=== PATIENT | male | born 1995 | race Two or more races ===

== ENCOUNTER 2024-04-02 06:15 | Emergency (ER) | payer BC, MEDICAID, SELFPAY ==
[2024-04-02 06:15] VITALS: BMI 23.4
[2024-04-02 06:20] VITALS: BP 134/68; PULSE 90; RESP 18; TEMP 36.8; O2SAT 98
--- NOTE | 2024-04-02 06:33 | XR_ITS ---
Examination: CT abdomen with intravenous contrast CT pelvis with intravenous contrast 2-D coronal reconstructions 2-D sagittal reconstructions Date and time of exam:April 02, 2024 0746 hrs. Comparison April 04, 2020 Indications: Nausea vomiting blood this morning, history 2 mm nonobstructing left renal calculus on CT abdomen pelvis study April 04, 2020. CTDI: vol (mGy) 6.45 DLP: (mGycm) 341 Technique: Multiple axial sections of the abdomen and pelvis have been obtained. 64 slice high-resolution scanner used. 3 mm axial sections have been obtained, post intravenous injection thickening of the gastric mucosa 2-D sagittal, coronal reconstructions obtained. Low dose protocols were performed. One or more of the following dose reduction techniques were used; automated exposure control, adjustment of the mA and/or KV according to patient size, use of iterative reconstruction technique. Findings: Diffuse thickening of the gastric mucosa No focal liver or splenic lesions No gallstones No pancreatic mass or peripancreatic edema Aorta normal size No renal or ureteral calculi, no hydronephrosis Mild fluid distended small bowel loops Normal appendix No diverticulitis Normal seminal vesicles Urinary bladder wall thickening up to 5 mm Moderate disc narrowing L5-S1 Impression: Gastritis pattern Negative for pancreatitis No renal or ureteral calculi, no hydronephrosis Mildly fluid distended small bowel loops, consider ileus, enteritis No bowel obstruction
--- NOTE | 2024-04-02 06:34 | PD.EDRME ---
Rapid Medical Screening Exam RME Arrival date/time: 04/02/24 06:15 This is a 29-year-old male who presents to the emergency department with complaints of epigastric abdominal pain and hematemesis, 1 bout of diarrhea today. I have greeted and performed a focused initial assessment of this patient. Initial appropriate labs ordered at this time. A comprehensive ED assessment and evaluation of the patient and analysis of all test and completion of medical decision making process will be conducted by additional ED provider. Chief Complaint: Nausea/Vomiting/Diarrhea Time Seen by Provider: 04/02/24 06:22 Vital signs: Vital Signs Temperature 98.3 F 04/02/24 06:20 Pulse Rate 90 04/02/24 06:20 Respiratory Rate 18 04/02/24 06:20 Blood Pressure 134/68 H 04/02/24 06:20 Pulse Oximetry (%) 98 04/02/24 06:20 Oxygen Delivery Method Room Air 04/02/24 06:20
--- NOTE | 2024-04-02 06:37 | XR_ITS ---
Examination: PA lateral chest 2 views Technique: Upright PA lateral chest 2 views Exam date and time: April 02, 2024 0657 hrs. Indications: Nausea vomiting hematemesis today, shortness of breath Findings: Normal heart size No aspiration pneumonia No pulmonary edema The osseous structures are intact Impression: No aspiration pneumonia
[2024-04-02] MEDS: ONDANSETRON ODT 4 MG TABRAP PO (06:45)
--- NOTE | 2024-04-02 07:26 | EDNOTE_ITS ---
Nausea/Vomit./Diarrhea-RME/HPI General Chief complaint: Nausea/Vomiting/Diarrhea Stated complaint: VOMITING BLOOD X 1HOUR Time Seen by Provider: 04/02/24 06:22 Arrival date/time: 04/02/24 06:15 RME / HPI RME / HPI Narrative: 04/02/24 06:15 This is a 29-year-old male who presents to the emergency department with complaints of epigastric abdominal pain and hematemesis, 1 bout of diarrhea today. I have greeted and performed a focused initial assessment of this patient. Initial appropriate labs ordered at this time. A comprehensive ED assessment and evaluation of the patient and analysis of all test and completion of medical decision making process will be conducted by additional ED provider. DR. MADISON MAIN ED EVALUATION 29 year old male with history of H.Pylori presents to the ED for evaluation of vomiting blood today. States he woke up about 1 hour ago with the sensation to vomit and went to the restroom where he threw up his dinner from last night. Says again had the sensation to vomit and threw up bright red blood, measuring about 2-3 tablespoons. Accompanied by abdominal pain, abdominal bloating sensation, and 1 bout of watery nonbloody diarrhea. Denies fevers, chills, sweats, chest pain, cough, shortness of breath, or urinary symptoms. Related Data Previous Rx's ?Medication ?Instructions ?Recorded famotidine 40 mg tablet (Pepcid) 40 mg PO QDAY #30 tabs 04/02/24 ondansetron 4 mg disintegrating 4 mg PO Q4H PRN nausea and 04/02/24 tablet vomiting 3 days #10 tabs Allergies Allergy/AdvReac Type Severity Reaction Status Date / Time No Known Allergies Allergy Verified 09/15/23 11:37 Review of Systems Review of Systems Narrative Review of Systems: GEN: No fever, no chills, no weight loss EYES: No discharge, no visual changes, no pain HEENT: No ear pain, no congestion, no sore throat PULM: No shortness of breath, no cough, no congestion CV: No chest pain, no dyspnea on exertion, no palpitations GI: +nausea, +vomiting, +diarrhea, +pain, no constipation : No frequency, no urgency and no dysuria MUSC/SKEL No joint pain, no back pain SKIN: No rash NEURO: No weakness, no headache Past Medical History Past Medical History NEUROLOGIC: Negative Neurological Disorders CARDIAC: Negative Cardiac Disorders RESPIRATORY: Positive Bronchitis GASTROINTESTINAL: Positive Gastrointestinal Disorders GENITOURINARY: Negative Genitourinary Disorders or Renal Disease MUSCULOSKELETAL: Negative Musculoskeletal Disorders ENDOCRINE: Negative Endocrine Disorders HEMATOLOGIC: Negative Blood Disorders Family History FAMILY HISTORY: Negative Family Cardiac Disorders Social History SMOKING STATUS: Never smoker SECOND HAND EXPOSURE: No ED Exam Narrative Physical exam: GENERAL APPEARANCE: Well hydrated, well nourished, in no acute distress. VITALS: All vitals were reviewed and the pulse ox is 98% on room air which is normal according to my interpretation. HEENT: Normocephalic, atramatic, EOMI, EACs are patent. There is no bulge or retraction. Throat without erythema or exudate. Moist oromucosa. No jaundice NECK: Supple, no JVD or bruits. CARDIOVASCULAR: Heart regular without S3-S4 or murmur. No rubs or gallops. LUNGS/CHEST: Clear to auscultation bilaterally. No rales, rhonchi, or wheezing. Normal inspection. ABDOMEN: Soft, nontender, with normal bowel sounds. No pulsatile masses. No rebound, rigidity, or guarding. No incarcerated hernia. Normal inspection and palpation. EXTREMITIES: Normal inspection and palpation. No edema, clubbing, or cyanosis. Intact CSM SKIN: Warm and dry without rashes. Normal inspection. MUSCULOSKELETAL: Normal inspection. No gross deformity, full ROM all extremities NEURO: Alert and oriented x3. Cranial nerves II through XII grossly intact. There are no other motor or sensory deficits noted. PSYCHIATRIC: Normal mood and affect. No psychosis Course Quality Measures none Orders Category Date Time Status CT Screening NOW Care 04/02/24 06:33 Active Insert IV NOW Care 04/02/24 06:32 Active NPO STAT Care 04/02/24 06:32 Active Occult Blood,Stool (Nursing) NOW Care 04/02/24 06:[address] abdomen pelvis w con Stat Exams 04/02/24 06:33 Completed XR chest 2V Stat Exams 04/02/24 06:37 Completed CBC Stat Lab 04/02/24 07:15 Completed Comprehensive Metabolic Panel Stat Lab 04/02/24 07:15 Completed Lipase Stat Lab 04/02/24 07:15 Completed Partial Thromboplastin Time Stat Lab 04/02/24 07:15 Completed Prothrombin Time with INR Stat Lab 04/02/24 07:15 Completed Urinalysis Stat Lab 04/02/24 07:13 Completed Morphine Inj Med 04/02/24 07:29 Discontinued 4 mg IVP X1 ONE Ondansetron Odt [Zofran Odt] Med 04/02/24 06:33 Discontinued 4 mg PO X1 ONE Pantoprazole Inj [Protonix Inj] Med 04/02/24 06:33 Discontinued 40 mg IV X1 ONE Vital Signs Vital signs: Vital Signs Temperature 98.3 F 04/02/24 06:20 Pulse Rate 90 04/02/24 06:20 Respiratory Rate 18 04/02/24 06:20 Blood Pressure 134/68 H 04/02/24 06:20 Pulse Oximetry (%) 98 04/02/24 06:20 Oxygen Delivery Method Room Air 04/02/24 06:20 Nausea/Vomiting/Diarrhea MDM Narrative MDM Narrative:: IMilagro, am scribing for and in the presence of Dr. Madison. The patient been smoking marijuana. He vomited once this morning with blood. The quantity is difficult to assess however he said that he vomited into the toilet and it may be about 2 teaspoon or so. After he vomited food. Bowel movement has been normal. And there was no blood. Abdominal exam is completely benign. It is nontender. WBC count is 16,000. Hemoglobin was 17 .8. Which is similar to the hemoglobin that had before. CMP and lipase are negative. Pro time is negative. UA is negative. 2 view chest x-ray interpreted by me: Clear lungs. Heart normal. Mediastinum normal. Normal bones. No pneumothorax no pneumomediastinum CT abdomen and pelvic was reviewed by me and interpreted by me: No free fluid. No free air. No stranding. No bowel obstruction. Liver, spleen, pancreas, kidneys all within normal limit. In the emergency department the patient was observed here until about 11:30 AM, during which time there is no evidence of vomiting definitely not vomiting blood. The patient was instructed to be on a liquid diet for now. And take Pepcid and Zofran as prescribed. He is encouraged to follow-up with his PMD or return tomorrow for recheck. Patient data External records reviewed:: [facility] previous records (I reviewed ED visit on 01/24/2021 ) Clinical information provided by:: patient Social determinants that could affect healthcare access:: substance use (Ingrid sterling ) Patient has the following chronic illnesses:: H.Pylori in the past How is presenting disease/condition affected by chronic disease/condition?: exacerbated by Evaluation data The following diagnostics were reviewed and interpreted by me:: lab results and radiology exam(s) Lab and/or radiology exams considered but not ordered:: None Interpretation Summary: Ordering Physician: Pattie Lara Date of Service: 04/02/24 Procedure(s): XR chest 2V Accession Number(s): [id number] cc: Francis Jenkins MD; Sara Marion ([facility]); Pattie Lara~ Examination: PA lateral chest 2 views Technique: Upright PA lateral chest 2 views Exam date and time: April 02, 2024 0657 hrs. Indications: Nausea vomiting hematemesis today, shortness of breath Findings: Normal heart size No aspiration pneumonia No pulmonary edema The osseous structures are intact Impression: No aspiration pneumonia Dictated By: Francis Jenkins MD Signed By: <Electronically signed by Francis Jenkins MD in [place]> 04/02/24 0713 Ordering Physician: Pattie Lara Date of Service: 04/02/24 Procedure(s): CT abdomen pelvis w con Accession Number(s): [id number] cc: Francis Jenkins MD; Sara Marion ([facility]); Pattie Lara~ Examination: CT abdomen with intravenous contrast CT pelvis with intravenous contrast 2-D coronal reconstructions 2-D sagittal reconstructions Date and time of exam:April 02, 2024 0746 hrs. Comparison April 04, 2020 Indications: Nausea vomiting blood this morning, history 2 mm nonobstructing left renal calculus on CT abdomen pelvis study April 04, 2020. CTDI: vol (mGy) 6.45 DLP: (mGycm) 341 Technique: Multiple axial sections of the abdomen and pelvis have been obtained. 64 slice high-resolution scanner used. 3 mm axial sections have been obtained, post intravenous injection thickening of the gastric mucosa 2-D sagittal, coronal reconstructions obtained. Low dose protocols were performed. One or more of the following dose reduction techniques were used; automated exposure control, adjustment of the mA and/or KV according to patient size, use of iterative reconstruction technique. Findings: Diffuse thickening of the gastric mucosa No focal liver or splenic lesions No gallstones No pancreatic mass or peripancreatic edema Aorta normal size No renal or ureteral calculi, no hydronephrosis Mild fluid distended small bowel loops Normal appendix No diverticulitis Normal seminal vesicles Urinary bladder wall thickening up to 5 mm Moderate disc narrowing L5-S1 Impression: Gastritis pattern Negative for pancreatitis No renal or ureteral calculi, no hydronephrosis Mildly fluid distended small bowel loops, consider ileus, enteritis No bowel obstruction Dictated By: Francis Jenkins MD Signed By: <Electronically signed by Francis Jenkins MD in OV> 04/02/24 0805 Medications / Prescriptions Medications / Prescriptions considered but not ordered:: None Medication administrations:: Medication Administration History Discontinued Medications Morphine Sulfate (Morphine Sulf Inj 10 Mg/Ml Vial) 4 mg IVP X1 ONE Stop: 04/02/24 07:30 Last Admin: 04/02/24 08:09 Dose: 4 mg Documented By: SALVADOR Ondansetron HCl (Ondansetron Odt 4 Mg Tabrap) 4 mg PO X1 ONE; Protocol Stop: 04/02/24 06:34 Last Admin: 04/02/24 06:45 Dose: 4 mg Documented By: EVELYN Pantoprazole Sodium (Pantoprazole Inj 40 Mg Vial) 40 mg IV X1 ONE Stop: 04/02/24 06:34 Last Admin: 04/02/24 08:09 Dose: 40 mg Documented By: SALVADOR See above Consultations Consultation(s) initiated? (list below): No Diagnosis Nausea Differential Diagnosis: food poisoning, gastroenteritis, drug-induced nausea and vomiting and dehydration Most likely diagnosis given after review of the tests above:: Gastritis Admission Indicated Admission indicated?: not indicated Admission Request Was there a request for admission?: No Disposition Plan Disposition Plan: Discharge Discharge Attestation Discharge Attestation: The patient and all family members were given an opportunity to ask questions and understood the discharge instructions. Discharge instructions specifically effects, indications for sooner follow up or return to the emergency department, and the expected course of current diagnosis. Patient condition: Stable Discharge Plan Plan Patient Disposition: HOME (Self Care) Disposition Comment: Stable for DC Prescriptions/Referrals Prescriptions/Med Rec: New ondansetron 4 mg tablet,disintegrating 4 mg PO Q4H PRN (Reason: nausea and vomiting) 3 Days Qty: 10 0RF Rx Instructions: 1st dose 1-2 hr before radiation famotidine [Pepcid] 40 mg tablet 40 mg PO QDAY Qty: 30 0RF Referrals: Doni [facility] STAFF ACCOUNTANT,Sara Ibrahim STAFF ACCOUNTANT [Primary Care Provider] - In 1 week Problem List Clinical Impression: Gastritis Patient/Caregiver Discharge Instructions Education Materials: ED Gastritis (Adult) Additional Instructions: Medication as prescribed. Liquid diet for now. See your doctor or return tomorrow for recheck. Print Language: [place] Stand Alone Forms: Elida Award Info., Patient Portal Info Letter
[2024-04-02 07:57] LABS: Collection Type, Urine Clean Catch; Squamous Epithelial Cell,Urine 0 /hpf (0-5)
[2024-04-02 08:03] LABS: Basophils % (Auto) 0 % (0-2.5); Eosinophils # (Auto) 0.1 Thou/mm3 (0.0-0.5); Eosinophils % (Auto) 0 % (0-10); Hemoglobin 17.8 g/dL (13.5-16.0); Immature Granulocytes % (Auto) 1 % (0-0); Immature Granulocytes Auto 0.08 Thou/mm3 (0.00-0.00); Lymphocytes % (Auto) 6 % (10-50); Mean Corpuscular HGB Conc 34.9 g/dl (31.0-37.0); Mean Corpuscular Hemoglobin 30.1 pg (25.0-35.0); Mean Corpuscular Volume 86 fL (80-100); Monocytes # (Auto) 0.6 Thou/mm3 (0.0-0.8); Monocytes % (Auto) 3 % (0-12); Neutrophils # (Auto) 14.7 Thou/mm3 (1.8-7.7); Neutrophils % (Auto) 89 % (37-80); Nucleated Red Blood Cell % 0 /100 WBC (0); Platelet Count 264 Thou/mm3 (140-440); RDW Standard Deviation 39.6 fL (35.1-43.9); Red Blood Count 5.91 Miln/mm3 (4.50-5.90); White Blood Count 16.4 Thou/mm3 (3.8-10.6)
[2024-04-02] MEDS: MORPHINE SULF INJ 10 MG/ML VIAL 4 MG IVP (08:09)
[2024-04-02] MEDS: PANTOPRAZOLE INJ 40 MG VIAL IV (08:09)
[2024-04-02 08:18] VITALS: BP 122/69; PULSE 86; RESP 18; TEMP 37; O2SAT 99
[2024-04-02 08:24] LABS: Alanine Aminotransferase 38 U/L (10-49); Albumin, Serum 5.9 gm/dL (3.5-5.0); Albumin/Globulin Ratio 1.8 (1.2-2.2); Alkaline Phosphatase 65 U/L (46-116); Anion Gap 9 (7-16); Aspartate Amino Transferase 27 U/L (0-34); BUN/Creatinine Ratio 15 Ratio (12-20); Bilirubin,Total 1.3 mg/dL (0.3-1.2); Blood Urea Nitrogen 15 mg/dL (9-23); Calcium 10.6 mg/dL (8.3-10.6); Calcium (Corrected) 10.6 mg/dL (8.5-10.1); Carbon Dioxide 29.9 mMol/L (20.0-31.0); Chloride 103 mMol/L (98-107); Estimated Creatinine Clearance 118.2 mL/min (>60); Globulin 3.3 gm/dL (2.3-3.5); Glucose 115 mg/dL (74-106); Lipase 46 U/L (12-53); Osmolality,Calculated 284 (275-295); Potassium 4.6 mMol/L (3.4-5.1); Sodium 142 mMol/L (136-145); Total Protein 9.2 gm/dL (5.7-8.2); eGFR > 60 See Note
[2024-04-02 08:25] LABS: Partial Thromboplastin Time 25.9 Seconds (22.0-36.0); Prothrombin Time 10.9 Seconds (9.0-12.2)
[2024-04-02 08:47] LABS: Bilirubin,Urine Negative (Negative); Blood,Urine Negative (Negative); Clarity,Urine Clear (Clear/Hazy); Color,Urine Yellow (Lt Yel-Yel); Glucose, Urine Negative (Negative); Ketones,Urine Negative (Negative); Leukocyte Esterase,Urine Negative (Negative); Nitrite,Urine Negative (Negative); PH,Urine 6.5 (5.0-7.0); Protein,Urine 1+ (Neg - Trace); RBC,Urine 3 /hpf (0-3); Specific Gravity,Urine 1.032 (1.001-1.035); Urobilinogen,Urine Negative mg/dL (0.0-1.0); WBC,Urine 1 /hpf (0-5)
[2024-04-02 10:34] VITALS: BP 131/81; PULSE 96; RESP 16; TEMP 37.3; O2SAT 97
--- NOTE | 2024-04-02 11:54 | PC.NURSE ---
occult not done due to patient refused
== END 2024-04-02 11:55 | disposition home or self-care (01) ==
PROVIDERS: Nurse Practitioner Primary Care; Emergency Provider Emergency Medicine; PCP Nurse Practitioner Family; Referring Provider Emergency Medicine
DX: K29.71 Gastritis, unspecified, with bleeding (principal)
CPT/HCPCS: 36415; 71046; 74177; 80053; 81001; 83690; 85025; 85610; 85730; 96374; 96375; 99285; A4649; J2270; J2470; Q0162; Q9967

== ENCOUNTER → 2024-04-04 | Outpatient (BNVA) | payer BC, MEDICAID, SELFPAY | END | disposition home or self-care (01) | PROVIDERS: PCP Nurse Practitioner Primary Care; Referring Provider Nurse Practitioner Primary Care; Visit Provider Nurse Practitioner Primary Care | DX: K29.00 Acute gastritis without bleeding (principal); Z51.89 Encounter for other specified aftercare; E78.2 Mixed hyperlipidemia; R73.03 Prediabetes; E55.9 Vitamin D deficiency, unspecified; F12.10 Cannabis abuse, uncomplicated; Z23 Encounter for immunization | CPT/HCPCS: 90471; 90686; 99214 ==

== ENCOUNTER → 2024-04-19 | Outpatient (BNVA) | payer BC, MEDICAID, SELFPAY | END | disposition home or self-care (01) | PROVIDERS: PCP Nurse Practitioner Primary Care; Referring Provider Nurse Practitioner Primary Care; Visit Provider Nurse Practitioner Primary Care | DX: Z71.2 Person consulting for explanation of examination or test findings (principal) | CPT/HCPCS: 99213 ==

== ENCOUNTER → 2024-05-31 | Outpatient (BNVA) | payer BC, MEDICAID, SELFPAY | END | disposition home or self-care (01) | PROVIDERS: PCP Nurse Practitioner Primary Care; Referring Provider Nurse Practitioner Primary Care; Visit Provider Nurse Practitioner Primary Care | DX: K29.00 Acute gastritis without bleeding (principal); K21.9 Gastro-esophageal reflux disease without esophagitis | CPT/HCPCS: 99212 ==

== ENCOUNTER → 2024-08-24 | Outpatient (BNVA) | payer BC, MEDICAID, SELFPAY | END | disposition home or self-care (01) | PROVIDERS: PCP Nurse Practitioner Family; Referring Provider Nurse Practitioner Family; Visit Provider Nurse Practitioner Family | DX: J40 Bronchitis, not specified as acute or chronic (principal) | CPT/HCPCS: 99213 ==

== ENCOUNTER → 2025-01-26 | Outpatient (BNVA) | payer BC, MEDICAID, SELFPAY | END | disposition home or self-care (01) | PROVIDERS: PCP Nurse Practitioner Family; Referring Provider Nurse Practitioner Family; Visit Provider Nurse Practitioner Family | DX: J06.9 Acute upper respiratory infection, unspecified (principal) | CPT/HCPCS: 87804; 87807; 87811; 99213 ==

== ENCOUNTER → 2025-02-27 | Outpatient (BNVA) | payer BC, MEDICAID, SELFPAY | END | disposition home or self-care (01) | PROVIDERS: PCP Nurse Practitioner Primary Care; Referring Provider Nurse Practitioner Primary Care; Visit Provider Nurse Practitioner Primary Care | DX: Z00.01 Encounter for general adult medical examination with abnormal findings (principal); K21.9 Gastro-esophageal reflux disease without esophagitis; Z13.220 Encounter for screening for lipoid disorders; Z13.1 Encounter for screening for diabetes mellitus; Z13.29 Encounter for screening for other suspected endocrine disorder; Z23 Encounter for immunization; Z11.3 Encounter for screening for infections with a predominantly sexual mode of transmission | CPT/HCPCS: 90471; 90686; 99173; 99215; G0008 ==

== ENCOUNTER → 2025-03-13 | Outpatient (BNVA) | payer BC, MEDICAID, SELFPAY | END | disposition home or self-care (01) | PROVIDERS: PCP Nurse Practitioner Primary Care; Referring Provider Nurse Practitioner Primary Care; Visit Provider Nurse Practitioner Primary Care | DX: Z71.2 Person consulting for explanation of examination or test findings (principal); E78.5 Hyperlipidemia, unspecified | CPT/HCPCS: 99212; G0463 ==